=== PATIENT | female | born 1965 | race Caucasian/White ===

== ENCOUNTER → 2017-12-09 | Emergency (ER) | payer OTHER ==
[~2017-12-09] VITALS: Ht 162.6 cm; Wt 90.7 kg
[~2017-12-09] MED LIST: DIOVAN HCT 1601 EACH PO; DIOVAN160 M1; KETO10TA2 PO; NORFLEX100MG PO
== END | disposition home or self-care (01) ==
LOC: ER 08:24
DX: M25.512 Pain in left shoulder (principal)

== ENCOUNTER 2017-12-13 10:20 | Outpatient (CLI) | payer OTHER | END 2017-12-13 11:53 | disposition home or self-care (01) | LOC: SONOGRAMA 10:20 | DX: M75.122 Complete rotator cuff tear or rupture of left shoulder, not specified as traumatic (principal) ==